=== PATIENT | female | born 1985 | race Caucasian/White ===

== ENCOUNTER 2019-11-09 02:12 | Outpatient (CLI) | payer OTHER, SELFPAY ==
[2019-11-09 18:39] LABS: SARS-CoV-2 RNA PCR Negative
== END 2019-11-09 02:13 | disposition home or self-care (01) ==
LOC: ANHCOVIDDT 02:12
PROVIDERS: Visit Provider Obstetrics & Gynecology
DX: Z01.812 Encounter for preprocedural laboratory examination (principal); Z11.59 Encounter for screening for other viral diseases
CPT/HCPCS: 87635; C9803; U0003

== ENCOUNTER 2019-11-11 01:55 | Day surgery (SDC) | payer OTHER, SELFPAY ==
[2019-11-07 18:14] VITALS: BMI 39.9
--- NOTE | 2019-11-11 07:07 | PM.IMHP ---
H&P: HPI History of Present Illness Chief complaint: Retained IUD Narrative: Nicki Herron is a 34 year old female Presents for removal of IUD. Attempted removal in office which was on the be performed due to discomfort. Ultrasound does reveal the IUD to be in the intrauterine cavity and the appropriate position. Review of Systems Review of Systems: All systems reviewed & are unremarkable except as noted in HPI and below PMFSH Family History Family History Mother Hypertension Social History Social History Smoking status: Never smoker Second hand tobacco smoke exposure: No Alcohol intake: current Drinks per week: 5 Substance use: never Living arrangements: with family Spiritual care concerns: Yes Meds Home Medications and Allergies Home Medications Medication Instructions Recorded Confirmed Type biotin 1 mg PO DAILY 11/07/19 11/07/19 History cetirizine [Zyrtec] 10 mg PO DAILY 11/07/19 11/07/19 History cholecalciferol (vitamin D3) 50 mcg PO DAILY 11/07/19 11/07/19 History [Vitamin D3] folic acid 1 mg PO DAILY 11/07/19 11/07/19 History vitamin B complex [B 1 tablet PO DAILY 11/07/19 11/07/19 History Complex-Vitamin B12] Allergies Allergy/AdvReac Type Severity Reaction Status Date / Time Penicillins Allergy Intermediate Hives Verified 11/07/19 18:16 Exam Const: General: no acute distress Resp: Auscultation: clear to auscultation bilaterally Cardio: Rate: regular rate Rhythm: regular rhythm GI: GI Palp: Yes Soft to palpation : Other: IUD string not noted on visual exam Assessment and Plan Assessment and plan (1) Retained intrauterine contraceptive device (IUD): Code(s): T83.39XA - Other mechanical complication of intrauterine contraceptive device, initial encounter Status: Acute Additional Plan proceed with hysteroscopic exam and removal of IUD.
[2019-11-11] MEDS: ACETAMINOPHEN 500 MG TABLET 1000 MG PO (10:00)
[2019-11-11 10:13] VITALS: BP 124/86; PULSE 91; RESP 16; TEMP 36.7; O2SAT 99
[2019-11-11] MEDS: LACTATED RINGERS 1,000 ML 30 ML IV CONT (10:35)
--- NOTE | 2019-11-11 10:49 | WPDANESEPPF ---
Anes - Initial Pre Proc Eval Procedure: Operation Date: 11/11/19 12:00 Proposed Procedures p Hysteroscopy, Removal Of Intrauterine Device - Christopher Lopez MD Date/Time: 11/11/19 10:49 Surgeon: Christopher Lopez MD Pre Op Diagnosis: Retained IUD Patient Data Age: 34 Gender: F Height: 1.6 m Weight: 102.27 kg Allergies Allergy/AdvReac Type Severity Reaction Status Date / Time Penicillins Allergy Intermediate Hives Verified 11/07/19 18:16 Home Medications Medication Instructions Recorded Confirmed Type biotin 1 mg PO DAILY 11/07/19 11/07/19 History cetirizine [Zyrtec] 10 mg PO DAILY 11/07/19 11/07/19 History cholecalciferol (vitamin D3) 50 mcg PO DAILY 11/07/19 11/07/19 History [Vitamin D3] folic acid 1 mg PO DAILY 11/07/19 11/07/19 History vitamin B complex [B 1 tablet PO DAILY 11/07/19 11/07/19 History Complex-Vitamin B12] Patient hx anesthesia problems: none Family hx anesthesia problems: none PMFSH Past Medical History Medical History (Updated 11/11/19 @ 10:50 by Arun Duong MD) Anxiety Back pain Bronchitis Depression Eczema Obesity Family History Family History Mother Hypertension Social History Social History Smoking status: Never smoker Second hand tobacco smoke exposure: No Alcohol intake: current Drinks per week: 5 Substance use: never Living arrangements: with family Spiritual care concerns: Yes Anes - Eval Final PreProcedure Day of Procedure 11/11/19 10:49 Patient weight: obese Heart: regular rate and rhythm Lungs: clear to auscultation and normal air movement Airway: Mallampati scale class II Neurological: alert and oriented Last oral intake: >/= 8 hours ASA classification: II Emergent: no Anesthetic plan: proceed Anesthesia type and monitoring: general GIVS and LMA Informed Consent: The patient's anesthetic plan and its attendant risks and benefits were discussed with the patient/family/POA. Questions were solicited and answers provided to the satisfaction of the patient/family/POA.
[2019-11-11] MEDS: ceFAZolin SODIUM 1 GM VIAL 2 GM IV PUSH (12:30)
[2019-11-11 12:39] VITALS: BP 123/82; PULSE 94; RESP 16; O2SAT 99
[2019-11-11 13:00] VITALS: BP 118/87; PULSE 88; RESP 16; O2SAT 99
--- NOTE | 2019-11-11 13:15 | PM.OP ---
Procedure Note - Brief Procedure Note - Brief Date of procedure: 11/11/19 Pre-op diagnosis: Retained IUD Post-op diagnosis: same Procedure performed: Hysteroscopy with removal of IUD Description of procedure: patient prepped and draped in usual manner for this procedure. Cervix dilated to allow the hysteroscope be placed which did reveal the IUD to be in its normal position. Polyp forceps were then used to grasp the IUD and readily removed without difficulty. There was no significant bleeding at this point the procedure was considered terminated. Anesthesia: MAC and local Surgeon: Christopher Lopez MD Estimated blood loss (mL): 10 Drains: No Packing: No Pathology: none sent Complications: No immediate complications Condition: stable Disposition: PACU Findings: retained IUD in the normal intrauterine position.
[2019-11-11 13:40] VITALS: BP 126/88; PULSE 84; RESP 14
--- NOTE | 2019-11-11 13:50 | SUR.PHASEII ---
1300; PT AWAKE, DROWSY, TEARFUL. C/O CRAMPING AND LOW BACK PAIN AT 8/10. PERIPAD SCANT VAG FLOW. ABDOMEN SOFT. FENTANYL GIVEN IV. 1315; PT REMAINS TEARFUL. STATES CRAMPING A LITTLE BETTER REMAINS TEARFUL. FENTANYL GIVEN IV. 1340: PT RESTING QUIETLY. RELAXED. STATES PAIN BETTER AT 5-6/10 NOW. ABDOMEN REMAINS SOFT. PT ASKING FOR PRESCRIPTION FROM DR ARECHIGA
--- NOTE | 2019-11-11 13:55 | SUR.PHASEII ---
OR CALLED. DR ARECHIGA WILL SEND A PRESCRIPTION ELECTRONICALLY. PHARMACY VERIFIED WITH PT.
[2019-11-11 14:10] VITALS: BP 113/73; PULSE 82; RESP 16
[2019-11-11 14:30] VITALS: BP 121/84; PULSE 84; RESP 16
--- NOTE | 2019-11-11 14:33 | SUR.PHASEII ---
1415; PT AWAKE AND ALERT. STATES PAIN MUCH BETTER NOW. READY TO GO HOME. ABDOMEN SOFT
--- NOTE | 2019-11-11 17:51 | SUR.PHASEII ---
1430; PT DRESSED. AWAKE AND ALERT. INSTRUCTIONS GIVEN. STATES PAIN MUCH BETTER NOW AND TOLERABLE. MEETS DISCHARGE CRITERIA.
== END 2019-11-11 14:48 | disposition home or self-care (01) ==
PROVIDERS: Visit Provider Obstetrics & Gynecology
PROC: 0U5B8ZZ Destruction of Endometrium, Via Natural or Artificial Opening Endoscopic (ICD-10-PCS; CPT 58563; principal; 2019-11-11 12:00)
DX: Z30.432 Encounter for removal of intrauterine contraceptive device (principal); F41.9 Anxiety disorder, unspecified; F32.9 Major depressive disorder, single episode, unspecified; E66.9 Obesity, unspecified; Z68.39 Body mass index [BMI] 39.0-39.9, adult; Z88.0 Allergy status to penicillin; Z79.899 Other long term (current) drug therapy
CPT/HCPCS: 58562; A9270; J0690; J2250; J2704; J3010; J7030; J7120

== ENCOUNTER 2019-11-18 12:58 | Emergency (ER) | payer OTHER, SELFPAY ==
--- NOTE | ~2019-11-18 | CT_ITS ---
EXAMINATION: CT abdomen pelvis w con DATE: 11/18/2019 14:13 INDICATION: Left lower quadrant abdominal pain. Nausea. TECHNIQUE: Computed tomography (CT) of the abdomen and pelvis was performed with 100 mL Omnipaque 350 intravenous contrast. Automated exposure control and iterative reconstruction technique were employe d. The dose-length product was 1181.93 mGy-cm. COMPARISON: CT abdomen and pelvis 06/01/2006 FINDINGS: The visualized portions of the lung bases are clear without pneumonia or pleural effusion. The heart size is normal. No pericardial effusion. There is diffuse hepatic steatosis. The gallbladde r, spleen, pancreas, adrenal glands, and right kidney are normal. There is a 12 mm cyst in left kidne y. There are no dilated loops of bowel. The appendix is normal. There are no pathologically enlarged lymph nodes. There is no free intraperitoneal fluid. There is a 2.3 cm cyst in left ovary, likely a d ominant follicle. The uterus is unremarkable. There is mild thoracolumbar spondylosis. IMPRESSION: 1. No etiology for the patient's symptoms. Reviewed, dictated and finalized at location A.
--- NOTE | ~2019-11-18 | XR_ITS ---
EXAMINATION: XR chest 2V DATE: 11/18/2019 14:18 INDICATION: Abdominal pain and lower chest pain TECHNIQUE: PA and lateral views of the chest are obtained. COMPARISON: None available FINDINGS: The lungs are free of acute opacities. There is no pleural effusion or pneumothorax. The ca rdiomediastinal silhouette is normal. The visualized bones and soft tissues are unremarkable. IMPRESSION: 1. No acute cardiopulmonary abnormality. Reviewed, dictated and finalized at location B.
[2019-11-18 13:04] VITALS: BP 151/101; PULSE 121; RESP 12; TEMP 36.6; O2SAT 100
--- NOTE | 2019-11-18 13:11 | ED.GENADULT ---
HPI - General Adult General Chief complaint: Abdominal Pain Stated complaint: ABD pain Time Seen by Provider: 11/18/19 13:11 Source: patient Mode of arrival: ambulatory Limitations: no limitations History of Present Illness HPI narrative: 34-year-old female patient presents to the emergency department with complaints of left-sided abdominal pain. Patient states that about 2 weeks ago she went into her [employer] office to have her IUD removed. Patient denies having any pain prior to going in to have her IUD removed. Patient states it was and therefore this point she was going to have it removed. Patient states that at first they could not find it and attempted to remove in the office with unsuccessful attempt. Patient states she started having some abdominal pain at that time. Patient states last Thursday she went into the OR where they successfully remove the IUD without complications. Patient denies any vaginal bleeding. Denies any nausea, vomiting or diarrhea. Denies any fevers. Patient states she continues to have the left-sided abdominal pain despite taking ibuprofen and Vicodin that was prescribed to her for the pain. Patient denies taking any Vicodin today but states that she did take some ibuprofen this morning. Patient rates her pain about 4 out of 10 at this time. Patient denies that she is aware of. Related Data Home Medications Medication Instructions Recorded Confirmed Zyrtec 10 mg PO DAILY 11/07/19 11/11/19 biotin 1 mg PO DAILY 11/07/19 11/11/19 cholecalciferol (vitamin D3) 50 mcg PO DAILY 11/07/19 11/11/19 [Vitamin D3] folic acid 1 mg PO DAILY 11/07/19 11/11/19 vitamin B complex [B 1 tablet PO DAILY 11/07/19 11/11/19 Complex-Vitamin B12] Allergies Allergy/AdvReac Type Severity Reaction Status Date / Time Penicillins Allergy Severe Hives Verified 11/18/19 13:14 Review of Systems Review of Systems: Narrative: CONSTITUTIONAL: Denies fever, chills, or sweats. EYES: Denies visual changes, redness, or discharge. ENT: Denies rhinorrhea, congestion, sore throat, or otalgia. CARDIOVASCULAR: Denies chest pain, palpitations, or edema. RESPIRATORY: Denies cough or dyspnea. GASTROINTESTINAL: Positive left-sided abdominal pain, denies nausea, vomiting, or diarrhea. GENITOURINARY: Denies dysuria or hematuria. SKIN: Denies rash or itching. MUSCULOSKELETAL: Denies back pain, joint pain, or myalgia. NEUROLOGIC: Denies headache, numbness, or weakness. PSYCHIATRIC: Denies anxiety or depression. [facility] Past Medical History Medical History Anxiety Back pain Bronchitis Depression Eczema Obesity Family History Family History Mother Hypertension Social History Social History Smoking status: Never smoker Second hand tobacco smoke exposure: No Alcohol intake: current Drinks per week: 5 Substance use: never Gender identity (if verbalized by the patient): Female Spiritual care concerns: Yes Comments At the time of my signature I agree with nursing past medical history, surgical, social, and family history. There is no relevant family history pertinent to the presenting complaint. Exam Narrative: Exam Narrative: GENERAL: Well-appearing, well-nourished, and in no acute distress. HEAD: Normocephalic, atraumatic. EYES: PERRLA and EOMI. ENT: Nares clear, no rhinorrhea or epistaxis. Mucous membranes moist. NECK: Supple. No lymphadenopathy CHEST: Clear to auscultation. No respiratory distress. HEART: Regular rate and rhythm. No murmur heard. Normal peripheral pulses. ABDOMEN: Soft, flat, nondistended. No guarding, rebound tenderness, or rigid. Patient does have slight tenderness on palpation to the left lower quadrant. No pulsatilla masses. Decreased bowel sounds present in all four quadrants. No organomegaly. Negative [place]?
--- NOTE | 2019-11-18 13:17 | ECG_ITS ---
Measurements Intervals [place] Rate: 89 P: 142 PA: 165 QRS: 165 QRSD: 84 T: 172 QT: 361 QTc: 440 Interpretive Statements SINUS RHYTHM ARM LEADS REVERSED BORDERLINE T WAVE ABNORMALITY- INFERIOR LEADS BASELINE WANDER- I, II, AVR BORDERLINE ECG Electronically Signed On 11-18-2019 16:32:31 CDT by Felton Alarcon D.O.
[2019-11-18 13:36] LABS: Basophils Absolute Auto 0.1 K/mm3 (0.0-0.1); Basophils Percent Auto 0.7 % (0.2-1.2); Eosinophils Absolute Auto 0.2 K/mm3 (0-0.3); Eosinophils Percent Auto 2.1 % (0-4.4); Hematocrit 44.9 % (37.0-47.0); Hemoglobin 15.8 g/dL (12.0-15.0); Immature Granulocyte Absolute 0.02 K/mm3 (0.00-0.031); Immature Granulocyte Percent A 0.2 % (0-0.5); Lymphocytes Absolute Auto 2.56 K/mm3 (0.9-3.2); Lymphocytes Percent Auto 31.5 % (18.3-44.2); Mean Corpuscular HGB Conc 35.2 g/dl (32-36); Mean Corpuscular Hemoglobin 30.4 pg (26-34); Mean Corpuscular Volume 86.5 fl (80-100); Mean Platelet Volume 10.3 fl (7.4-10.4); Monocytes Absolute Auto 0.5 K/mm3 (0.1-0.6); Monocytes Percent Auto 6.6 % (2.6-8.5); Neutrophils Absolute Auto 4.8 K/mm3 (1.3-6.7); Neutrophils Percent Auto 58.9 % (45.5-73.1); Platelet Count Result 355 k/mm3 (150-375); Red Blood Count 5.19 M/mm3 (4.2-5.4); Red Cell Distribution Width 11.9 % (11.5-14.5); White Blood Count 8.1 K/mm3 (4.5-10.0)
[2019-11-18 13:45] LABS: INR 0.9; Prothrombin Time 12.2 Seconds (11.1-14.7)
[2019-11-18 13:46] LABS: Partial Thromboplastin Time 28.7 SECONDS (22.3-36.8)
[2019-11-18 13:47] LABS: Alanine Aminotransferase 57 U/L (4-35); Albumin Level 4.6 g/dL (3.5-5.1); Alkaline Phosphatase 54 U/L (38-126); Anion Gap 12.9 mmol/L (7-16); Aspartate Amino Transferase 40 U/L (14-36); Bilirubin,Total 0.5 mg/dL (0.2-1.3); Blood Urea Nitrogen 10 mg/dL (7-17); Carbon Dioxide 25 mmol/L (22-30); Chloride 104 mmol/L (98-107); Estimated CRCL calculation 111 ml/min; Estimated Glomerular Filt Rate > 60; Glucose 114 mg/dL (65-105); Lipase 100 U/L (23-300); Potassium 3.9 mmol/L (3.4-5.0); Sodium 138 mmol/L (137-145)
[2019-11-18 13:51] LABS: Add Urine Microscopic? YES; Appearance Urine Clear (Clear); Bacteria Urine Trace /hpf; Bilirubin Urine Negative (Negative); Blood Urine 1+ (Negative); Color Urine Straw (Yellow); Glucose Urine UA Negative (Negative); Ketones Urine Negative (Negative); Leukocyte Esterase Ur Negative LEU/UL (Negative); Nitrate Urine Negative (Negative); Protein Urine Negative (Negative); RBC Urine 0-2 /hpf (0-2); Specific Grav Ur 1.008 (1.001-1.035); Squamous Epithelial Cell Urine Many /hpf (Few); Urobilinogen Urine Negative mg/dL (<2.0); WBC Urine 0-3 /hpf
[2019-11-18] MEDS: SODIUM CHLORIDE 0.9% IV 1,000 ML 999 ML IV CONT (13:53)
[2019-11-18] MEDS: CYCLOBENZAPRINE HCL 10 MG TABLET PO (14:54)
[2019-11-18 15:02] VITALS: BP 120/89; PULSE 98; RESP 18; O2SAT 98
== END 2019-11-18 15:44 | disposition home or self-care (01) ==
PROVIDERS: Emergency Provider Nurse Practitioner Family
DX: M62.838 Other muscle spasm (principal); E66.9 Obesity, unspecified; Z68.39 Body mass index [BMI] 39.0-39.9, adult; R94.31 Abnormal electrocardiogram [ECG] [EKG]; R03.0 Elevated blood-pressure reading, without diagnosis of hypertension
CPT/HCPCS: 36415; 71046; 74177; 80053; 81001; 81025; 82248; 83690; 85025; 85610; 85730; 93005; 96360; 99284; A9270; J7030; Q9967